=== PATIENT | male | born 1965 | race Caucasian/White ===

== ENCOUNTER 2021-07-28 10:15 | Outpatient (RCR) | payer OTHER, MEDICAID, SELFPAY | END 2021-07-28 12:15 | LOC: CAR 10:15 | PROVIDERS: PCP Student in an Organized Health Care Education/Training Program; Referring Provider Internal Medicine; Visit Provider Internal Medicine | DX: I21.02 ST elevation (STEMI) myocardial infarction involving left anterior descending coronary artery (principal) | CPT/HCPCS: 93798 ==

== ENCOUNTER → 2021-10-16 09:51 | Outpatient (CLI) | payer OTHER, MEDICAID, SELFPAY ==
--- NOTE | 2021-10-16 | DI.US.S_ITS ---
PROCEDURE: US THORACENTESIS INDICATIONS: Pleural effusion, not elsewhere classified TECHNIQUE: The indications, alternatives, benefits, risks, and complications of the procedure were explained to the patient. Written informed consent was obtained and placed in the chart. The chest was examined sonographically, and an appropriate site was chosen for thoracentesis. The skin was prepared and draped in the usual sterile fashion, and 1% lidocaine was infiltrated from the skin down through the pleural surface. A 19-gauge catheter-covered needle was then introduced into the pleural space, the catheter was advanced and the needle was withdrawn, and thereafter pleural fluid was aspirated. The catheter was then removed and a dressing was applied. COMPARISON: None. FINDINGS: Access site: Right hemithorax. Needle: One-Step centesis catheter with introducer needle. Fluid volume and description: 2.2 liters of serous sanguinous fluid. Fluid sent for diagnostic testing: None. Medications: 1% lidocaine for local anaesthesia. Complications: None; post-procedural chest radiograph is pending to assess for pneumothorax. IMPRESSION: Successful ultrasound-guided thoracentesis. Dictated by: Christophe Traore M.D. on 10/16/2021 at 11:34 Approved by: Christophe Traore M.D. on 10/16/2021 at 11:34
--- NOTE | 2021-10-16 10:47 | DI.RAD.S_ITS ---
PROCEDURE: XR CHEST 1V INDICATIONS: POST THORA. TECHNIQUE: One view of the chest was acquired. COMPARISON: Outside Facility, RG, XR CXR 2V, 07/25/2021, 13:36. Outside Facility, RG, XR CXR 1V, 08/25/2021, 11:57. FINDINGS: Surgical changes and devices: None. Lungs and pleura: Small right pleural effusion. Elevation of the right reba-diaphragm versus a subpulmonic component of the effusion. Mild hazy opacities in the right lung, nonspecific, potentially atelectasis or re-expansion edema. No pneumothorax. Mediastinum: Mediastinal contours appear normal. Heart size is normal. Bones and chest wall: No suspicious bony lesions. Overlying soft tissues appear unremarkable. IMPRESSION: 1. No pneumothorax. 2. Small right pleural effusion. 3. Mild nonspecific right lung opacities, potential atelectasis or re-expansion edema, aspiration or pneumonia not excludable. Dictated by: Doc Brown M.D. on 10/16/2021 at 10:53 Approved by: Doc Brown M.D. on 10/16/2021 at 11:00
== END ==
PROVIDERS: Referring Provider Nurse Practitioner; Visit Provider Nurse Practitioner
DX: J90 Pleural effusion, not elsewhere classified (principal)
CPT/HCPCS: 32555; 71045

== ENCOUNTER → 2021-12-02 12:42 | Outpatient (CLI) | payer OTHER, MEDICAID, SELFPAY ==
--- NOTE | 2021-12-02 | DI.US.S_ITS ---
PROCEDURE: US THORACENTESIS INDICATIONS: RIGHT PLEURAL EFFUSION TECHNIQUE: The indications, alternatives, benefits, risks, and complications of the procedure were explained to the patient. Written informed consent was obtained and placed in the chart. The chest was examined sonographically, and an appropriate site was chosen for thoracentesis. The skin was prepared and draped in the usual sterile fashion, and 1% lidocaine was infiltrated from the skin down through the pleural surface. A 19-gauge catheter-covered needle was then introduced into the pleural space, the catheter was advanced and the needle was withdrawn, and thereafter pleural fluid was aspirated. The catheter was then removed and a dressing was applied. COMPARISON: [facility], THORACENTESIS, 10/16/2021, 10:21. FINDINGS: Access site: Right hemithorax. Needle: One-Step centesis catheter with introducer needle. Fluid volume and description: 1.9 L of reddish clear fluid Fluid sent for diagnostic testing: None. Medications: 1% lidocaine for local anaesthesia. Complications: None; post-procedural chest radiograph is pending to assess for pneumothorax. IMPRESSION: Successful ultrasound-guided thoracentesis. Dictated by: Christophe Traore M.D. on 12/02/2021 at 17:12 Approved by: Christophe Traore M.D. on 12/02/2021 at 17:12
--- NOTE | 2021-12-02 | DI.RAD.S_ITS ---
PROCEDURE: XR CHEST 1V INDICATIONS: Post thoracentesis TECHNIQUE: One view of the chest was acquired. COMPARISON: [facility], CR, XR CHEST 1V, 10/16/2021, 10:50. FINDINGS: Surgical changes and devices: None. Lungs and pleura: Trace residual right pleural effusion is seen with blunting of right costophrenic angle. No gross pneumothorax. No definite focal infiltrate. Mediastinum: Mediastinal contours appear normal. Heart size is normal. Bones and chest wall: No suspicious bony lesions. Overlying soft tissues appear unremarkable. IMPRESSION: Trace residual right pleural effusion. No gross pneumothorax. Left lung is clear. Dictated by: Christophe Traore M.D. on 12/02/2021 at 13:40 Approved by: Christophe Traore M.D. on 12/02/2021 at 14:14
== END ==
PROVIDERS: Referring Provider Nurse Practitioner; Visit Provider Nurse Practitioner
DX: J90 Pleural effusion, not elsewhere classified (principal)
CPT/HCPCS: 32555; 71045